=== PATIENT | female | born 1960 | race Caucasian/White ===

== ENCOUNTER 2023-11-23 14:12 | Emergency (ER) | payer MEDICARE, SELFPAY ==
[2023-11-23 14:20] VITALS: BP 203/91; PULSE 89; TEMP 36.5; O2SAT 98; BMI 29.1
[2023-11-23] MEDS: LIDOCAINE HCL 1% 100 MG/10 ML MDV INJ (14:35)
[2023-11-23 15:10] VITALS: BP 178/80; PULSE 88; O2SAT 98
--- NOTE | 2023-11-23 15:38 | ED.GENADUL1 ---
HPI HPI - General Adult General Chief complaint: Skin/Abscess/Foreign Body Stated complaint: LOCALIZED REDNESS/ SWELLING Time Seen by Provider: 11/23/23 14:20 Source: patient Mode of arrival: walk-in History of Present Illness HPI narrative: Patient presents to ED complaining of an infection in the left index finger. She noticed swelling and pain and went to urgent care on the . She has been on clindamycin since. She said the swelling and throbbing has gotten worse. She denies any fevers. No pain in the hand or wrist or elbow. No shortness of breath. She is diabetic and she was concerned so she came in for further evaluation. She reports increased swelling around the cuticle area and in the tip of the finger.Patient reports that it is throbbing at night. No drainage Related Data Home Medications ?Medication ?Instructions ?Recorded ?Confirmed atorvastatin 40 mg tablet 40 mg PO DAILY 11/23/23 11/23/23 clindamycin HCl 300 mg capsule 300 mg PO TID 11/23/23 11/23/23 duloxetine 30 mg capsule,delayed 30 mg PO DAILY 11/23/23 11/23/23 release losartan 50 mg tablet 50 mg PO DAILY 11/23/23 11/23/23 metformin 850 mg tablet 850 mg PO DAILY 11/23/23 11/23/23 Previous Rx's ?Medication ?Instructions ?Recorded cephalexin 500 mg capsule 500 mg PO BID 7 days #14 caps 11/23/23 oxycodone-acetaminophen 5 mg-325 1 tab PO Q6H #10 tabs 11/23/23 mg tablet (Percocet) sulfamethoxazole 800 1 tab PO Q12H 7 days #14 tabs 11/23/23 mg-trimethoprim 160 mg tablet (Bactrim DS) Allergies Allergy/AdvReac Type Severity Reaction Status Date / Time Penicillins Allergy Severe Rash Verified 11/23/23 14:24 Opioid HPI Opioid Management Most Recent Opioid Data: No Data to Display Review of Systems ROS Status of ROS 10 or more systems reviewed and unremarkable except as noted in history and below [facility] Medical History (Updated 11/23/23 @ 15:06 by Sariah Bell DO) High cholesterol ?E78.00 - Pure hypercholesterolemia, unspecified (ICD-10) Diabetes ?E11.9 - Type 2 diabetes mellitus without complications (ICD-10) HTN (hypertension) ?I10 - Essential (primary) hypertension (ICD-10) Exam Narrative Exam Narrative: General: alert, no acute distress Cardiovascular: regular rate and rhythm, normal peripheral perfusion. Respiratory: Lungs CTA, respirations non labored. Extremities: Left index finger shows a paronychia at the DIP. Purulent material under the skin with swelling in the fingertip and around the cuticle area. No pain with passive or active range of motion of the finger no pain or swelling in the hand no pain in the wrist joint. No lymphangitis in the arm. Neurological: oriented x 4, LOC appropriate for age. Constitutional Vital Signs, click to edit/add: Last Vital Signs Temp 97.7 F 11/23/23 14:20 Pulse 88 11/23/23 15:10 Resp 18 11/23/23 15:10 BP 178/80 H 11/23/23 15:10 Pulse Ox 98 11/23/23 15:10 O2 Del Method Room Air 11/23/23 14:20 Course Vital Signs Vital signs: Vital Signs Temperature 97.7 F 11/23/23 14:20 Pulse Rate 89 11/23/23 14:20 Respiratory Rate 18 11/23/23 14:20 Blood Pressure 203/91 H 11/23/23 14:20 Pulse Oximetry 98 11/23/23 14:20 Oxygen Delivery Method Room Air 11/23/23 14:20 Temperature 97.7 F 11/23/23 14:20 Pulse Rate 88 11/23/23 15:10 Respiratory Rate 18 11/23/23 15:10 Blood Pressure 178/80 H 11/23/23 15:10 Pulse Oximetry 98 11/23/23 15:10 Oxygen Delivery Method Room Air 11/23/23 14:20 Medical Decision Making MDM Narrative Medical decision making narrative: Digital block performed on the left. Incision made over area of fluctuance with 11 blade. Purulent drainage and blood from the finger. Swelling did improve. Bulky dressing was placed on the finger. Patient was given wound care for follow-up. Return to ED if worsening pain swelling, redness in the finger lymphangitis in the arm pain in the hand or wrist. Patient was told to stop her clindamycin and we will switch her to Bactrim and Keflex as I think this provides better coverage. Patient did say the Clindamycin was giving her some diarrhea. Patient was given pain medication for home as well. Return to ED if anything worsens otherwise follow-up outpatient.Patient and family comfortable care plan for home Differential Diagnosis Differential Diagnosis: Cellulitis, paronychia, tenosynovitis Discharge Plan Discharge Chief Complaint: Skin/Abscess/Foreign Body Clinical Impression: Paronychia Patient Disposition: Home, Self-Care Time of Disposition Decision: 15:05 Condition: Good Mode of Transportation: Private Vehicle Prescriptions / Home Meds: New sulfamethoxazole-trimethoprim [Bactrim DS] 800-160 mg tablet 1 tab PO Q12H 7 Days Qty: 14 0RF cephalexin 500 mg capsule 500 mg PO BID 7 Days Qty: 14 0RF oxycodone-acetaminophen [Percocet] 5-325 mg tablet 1 tab PO Q6H Qty: 10 0RF Rx Instructions: paronychia No Action atorvastatin 40 mg tablet 40 mg PO DAILY clindamycin HCl 300 mg capsule 300 mg PO TID duloxetine 30 mg capsule,delayed release(DR/EC) 30 mg PO DAILY losartan 50 mg tablet 50 mg PO DAILY metformin 850 mg tablet 850 mg PO DAILY Print Language: Slovenian Instructions: Paronychia (ED) Referrals: Papa Gutiérrez RN [Registered Nurse] - As soon as possible Physician,Non-Staff, MD [Primary Care Provider] - 1 week Discharge Date/Time: 11/23/23 15:13 Procedures ED ID Incision & Drainage I&D Type: abcess Site: finger Side (if applicable): left Sedation/analgesia: none Anesthetic used: lidocaine 1% Technique: incised with #11 blade Amount of fluid (mL): 3 Irrigation: Yes Packing used: none
== END 2023-11-23 15:13 | disposition home or self-care (01) ==
PROVIDERS: Emergency Provider Emergency Medicine
DX: L03.012 Cellulitis of left finger (principal)
CPT/HCPCS: 10060; 99283